=== PATIENT | male | born 1975 | race Hispanic/Latino ===

== ENCOUNTER 2018-12-21 00:36 | Emergency (ER) | payer OTHER ==
[2018-12-21] MEDS ORDERED: ACETAMINOPHEN EXTRA STRENGTH 500 MG TABLET ONE (02:27)
[2018-12-21 02:40] LABS: BASOPHILS % (AUTO) 0.2 % (0.0-5.0); EOSINOPHILS % (AUTO) 0.7 % (0.0-8.0); HEMATOCRIT 45.1 % (42-54); LYMPHOCYTES % (AUTO) 13.7 % (21.0-51.0); MEAN CORPUSCULAR HEMOGLOBIN 30.6 pg (27.0-33.0); MEAN CORPUSCULAR VOLUME 87.5 fL (79-99); MONOCYTES % (AUTO) 8.9 % (3.0-13.0); NEUTROPHILS % (AUTO) 76.5 % (40.0-77.0); NUCLEATED RED BLOOD CELLS 0.1 % (0.0-0.19); PLATELET COUNT (AUTO) 240 K/uL (130-400); RED BLOOD CELL COUNT(AUTO) 5.15 MIL/uL (4.50-6.20); RED CELL DISTRIBUTION WIDTH 12.3 % (11.0-15.5); WHITE BLOOD COUNT (AUTO) 6.9 K/uL (4.8-10.8)
[2018-12-21 02:47] LABS: RAPID GROUP A STREP NEGATIVE (NEGATIVE)
[2018-12-21 02:48] LABS: CREATININE 1.1 mg/dL (0.5-1.5); POTASSIUM 3.5 mmol/L (3.5-5.1)
[2018-12-21 02:53] LABS: ALBUMIN 3.9 g/dL (3.5-5.0); BILIRUBIN,TOTAL 0.6 mg/dL (0.2-1.0); TOTAL PROTEIN, SERUM 7.5 g/dL (6.0-8.3)
[2018-12-21] MEDS ORDERED: IBUPROFEN 600 MG TABLET ONE (03:07)
[2018-12-21] MEDS ORDERED: OSELTAMIVIR PHOSPHATE 75 MG CAP ONE (04:09)
[2018-12-21] MEDS ORDERED: ONDANSETRON ODT 4 MG TAB ONE (04:10)
== END 2018-12-21 04:19 | disposition home or self-care (01) ==
LOC: EDH 00:36
DX: J10.1 Influenza due to other identified influenza virus with other respiratory manifestations (principal); H66.92 Otitis media, unspecified, left ear
CPT/HCPCS: 36415; 71046; 80053; 85025; 87804; 87880